=== PATIENT | male | born 1950 | race Caucasian/White ===

== ENCOUNTER 2017-03-13 10:56 | Day surgery (SDC) | payer MEDICARE, OTHER ==
[2017-03-13] VITALS (11 sets, daily range): BP systolic 129–154; BP diastolic 58–80; PULSE 52–60; RESP 10–19; O2SAT 93–100
[~2017-03-13] VITALS: Ht 167.6 cm; Wt 125.0 kg
[~2017-03-13 10:56] MED LIST: ASPI-973 PO; ATEN50TA PO; Ampicillin 2,000 mg/50 mL NS Minibag Plus IV SCH; CHOL200025 PO; Gentamicin 200 mg/100 mL D5W IV ONE; HYDR25TA4 PO; Lactated Ringer's 1,000 ML IV SCH; MAGN500P34 MC; RIVA20TA PO; SILD100T PO; UBID50TA3 PO; VIT1TABL83 PO; ZYL100 PO
[2017-03-13] MEDS ORDERED: Propofol 10,000 mCg/mL 20 mL Inj ONE (10:57)
[2017-03-13] MEDS ORDERED: Glycopyrrolate 0.2 MG/ML 1mL Inj ONE (10:57)
[2017-03-13] MEDS ORDERED: MetoCLOpramide 5 mg/mL 2 mL Inj ONE (10:57)
[2017-03-13] MEDS ORDERED: Neostigmine 1 mg/mL 10 mL Inj ONE (10:57)
[2017-03-13] MEDS ORDERED: Rocuronium 10 mg/mL 5 mL Inj ONE (10:57)
[2017-03-13] MEDS ORDERED: EPHEDrine/NS 5 mg/mL 5 mL Syringe ONE (10:57)
[2017-03-13] MEDS ORDERED: Ondansetron 2 mg/mL 2 mL Inj ONE (10:57)
[2017-03-13] MEDS ORDERED: fentaNYL-PF 50 mCg/mL 2 mL Inj ONE (10:57)
[2017-03-13] MEDS ORDERED: Lactated Ringer's 1,000 ML IV ONE ×2 (11:19→13:43)
[2017-03-13] MEDS ORDERED: Lactated Ringer's 500 ML IV PRN (12:23)
[2017-03-13] MEDS ORDERED: Lactated Ringer's 1,000 ML IV SCH (12:23)
[2017-03-13] MEDS ORDERED: HYDROmorphone 1 mg/mL Inj IVPUSH PRN (12:25)
[2017-03-13] MEDS ORDERED: Labetalol 5 mg/mL 20 mL Inj IV PRN (12:25)
[2017-03-13] MEDS ORDERED: Atropine 0.4 mg/mL Inj IVPUSH PRN (12:25)
[2017-03-13] MEDS ORDERED: EPHEDrine Sulfate 50 mg/mL Inj IVPUSH PRN (12:25)
[2017-03-13] MEDS ORDERED: fentaNYL-PF 50 mCg/mL 2 mL Inj IVPUSH PRN (12:25)
[2017-03-13] MEDS ORDERED: MetoCLOpramide 5 mg/mL 2 mL Inj IVPUSH PRN (12:25)
[2017-03-13] MEDS ORDERED: Phenylephrine 10,000 mCg/mL Inj IVPUSH PRN (12:25)
[2017-03-13] MEDS ORDERED: Ondansetron 2 mg/mL 2 mL Inj IVPUSH PRN (12:25)
--- NOTE | 2017-03-13 13:03 | PCM.HPANE ---
Patient Data Surgeon Admitting Provider: Attending Provider:Marcelo Tuttle MD Primary Care Physician:Claudio Brice MD Other Provider:Jimmy Morales Anesthesia Reason for Visit Left Kidney Stone Ht/WT & BMI Height (Feet): 5 Height (Inches): 6 Weight (Kilograms): 125 Body Mass Index 44.00 Allergies Coded Allergies: TYRON Inhibitors (Unverified Allergy, Severe, ANAPHYLAXIS, 09/06/15) Adhesives (Unverified Allergy, Severe, BLISTERS (STERI STRIPS), 09/06/15) azithromycin (Unverified Allergy, Unknown, UNKNOWN, 09/06/15) erythromycin base (Verified Allergy, Unknown, UNKNOWN, 09/06/15) shellfish derived (Verified Allergy, Unknown, UNKNOWN, 09/06/15) Past Anesthesia History Anesthesia History: Denies:: Abnormal Airway, Anesthesia Reactions, Difficult Intubation, Fam Anesthesia Reaction, Fam Malignant Hypertherm, Malignant Hyperthermia Diabetes History Hx Diabetes?: Yes Type of Diabetes: Type II Glycemic Control: Diet Controlled Current Bedside Blood Glucose: 133 MRSA MRSA: No Medications Blood Thinner: Aspirin Hypertension Medication: Yes Home Meds Incl Beta Whitley: Yes Date Beta Whitley Taken: Mar 13, 2017 Time Beta Whitley Taken: 0800 Reported Medications Rivaroxaban (Xarelto)20 Mg Igkpkc99 Mg PO PRN atrial fib 03/07/17 Cholecalciferol (Vitamin D3) (Vitamin D3)2,000 Unit Tablet2,000 Unit PO DAILY 03/07/17 Vit B Comp/C/FA/Iron/Vit E (Vitamin B Complex Tablet)1 Each Tablet1 Each PO DAILY 03/07/17 Sildenafil Citrate (Viagra)100 Mg Lkhkxs31-769 Mg PO UD PRN erectile dysfunction Ref 0 03/07/17 Magnesium Carbonate 500 Gm PowderUnknown Dose MC DAILY 03/07/17 Hydrochlorothiazide 25 Mg Trbiyp45 Mg PO DAILY 30 Days Ref 0 03/07/17 Ubidecarenone (Coq10)50 Mg Tab.gtir520 Mg PO BID 03/07/17 Atenolol 50 Mg Keytsr84 Mg PO BID #30 TABLET Ref 0 03/07/17 Aspirin 81 Mg Gejcyl04 Mg PO DAILY Ref 0 03/07/17 Allopurinol 100 Mg Oxjjya426 Mg PO DAILY Ref 0 03/07/17 Discontinued Reported Medications Cholecalciferol (Vitamin D3) (Vitamin D3)2,000 Unit Tablet2,000 Unit PO DAILY 4/20/16 Vit B Comp/C/FA/Iron/Vit E (Vitamin B Complex Tablet)1 Each Tablet1 Each PO DAILY 11/15/15 Sildenafil Citrate (Viagra)100 Mg Hbmvey289 Mg PO UD PRN erectile dysfunction Ref 0 11/15/15 Ubidecarenone (Co Q-10)100 Mg Aceqnge575 Mg PO DAILY 11/15/15 Atenolol 50 Mg Utdslj24 Mg PO DAILY #30 TABLET Ref 0 11/15/15 Hydrochlorothiazide 25 Mg Aarbqa35 Mg PO DAILY 30 Days Ref 0 11/15/15 Aspirin 81 Mg Ttqlas33 Mg PO DAILY Ref 0 11/15/15 Allopurinol 100 Mg Sqsnzk445 Mg PO DAILY Ref 0 11/15/15 History History of ENT Problems?: No HEENT History: Denies:: Abnormal Airway Cataracts Difficult Intubation Dysphagia Glaucoma Hearing Problem Sinus Problem TMJ Denture Type: None Teeth Condition: Within Normal Limits Hx of Heart Problems?: Yes Cardiovascular History: Positive for:: Atrial Fibrillation (cardioversion/ ablation for PAF 2013) Cardiac Surgery (S/P CARDIAC ABLATION 02/2014) Edema Hypertension Irregular Heartbeat (occ palpitations) Denies:: AICD Abdominal Aortic Aneurism Chest Pain Congestive Heart Failure Coronary Artery Disease Heart Murmur Pacemaker Peripheral Vascular Rheumatic Fever Thrombophlebitis Valvular Heart Disease Other Cardiac History: pt has Xarelto prescription for prn treatment of atrial fib- has not needed to use it. Is aware that he needs to be off all blood thinners for surgery- will notify dr Flowers office if he initiates prescription Hx of Respiratory Problem?: Yes Respiratory History: Positive for:: Use of C-PAP Machine (HENOK+) Denies:: Asthma COPD Chest Surgery Cough Dyspnea Emphysema Hemoptysis Oxygen Administration Pneumonia (HX OF) Pulmonary Embolism Tuberculosis Use of Inhalers / NEBS Hx Neurologic Problems?: No Neurological History: Denies:: Alzheimer's Disease CVA Dementia Dizziness Headaches Multiple Sclerosis Parkinson's Disease Peripheral Neuropathy Seizures TIA Hx of GI Problems?: Yes Gastrointestinal History: Denies:: Cirrhosis Diverticulitis Gall Bladder Disease Gastroesphageal Reflux Gastrointestinal Bleeding Heartburn Hepatitis Hiatal Hernia Liver Disease Rectal Bleeding Hx of Problems?: Yes Genitourinary History: Positive for:: Kidney Stones (left kidney stone current admission problem) Denies:: HX of Hemodialysis Urinary Tract Infection HX of Peritoneal Dialysis: No Male Hx: Positive for:: Prostate Problems (BPH) Denies:: Scrotal Mass Testicular Surgery Skin History: Positive for:: History Skin Disorders? (S/P EXC SHOULDER MELANOMA) Denies:: Pressure Ulcers Hx Musculoskeletal Problems?: Yes Musculoskeletal History: Positive for:: Musculoskeletal Trauma (S/P FINGER RPR ) Denies:: Back Injury Degenerative Joint Fibromyalgia Joint Replacement Myasthenia Gravis Osteoarthritis Rheumatoid Arthritis Systemic Lupus Hx of Psycho/Social Problems?: No Psycho Social History: Denies:: Anxiety Bipolar Disorder Hx Depression Suicide Attempt Hx Surgeries?: Yes (MARILUZ,FINGER RPR,TONSILS,EXC MELANOMA,LT ESWL,CARDIAC ABLATION) Hx Any Other Health Problems?: Yes Other History: Positive for:: Cancer (hx of melanoma shoulder) Hospitalization (CARDIAC) Denies:: Endocrine Disease Thyroid Disease History Blood Transfusions: Positive for:: Accept Blood Products? Denies:: Blood Transfuse Reaction Blood Transfusions Hx Diabetes: YesBedside Blood Glucose: 133 Hx Alcohol Use: YesHx Substance Use: No Smoking Status: Former Smoker Have You Smoked inLast 12 mo: No Stop/Bang P-Blood Pressure: treated: Yes B- Body Mass Index > 35 kg/m2: Yes A- Age over 50: Yes N- Neck Large Circumference: Yes Risk Assessment Category Category 1A: Patient has history of documented sleep apnea, and HAS NOT received any narcotic, sedative or anesthesia administration during this stay. Category 1B: Patient has history of documented sleep apnea, and HAS received any narcotic , sedative or anesthesia administration during this stay Category 2: Patient has SUSPECTED Obstructive Sleep Apnea, and HAS received any narcotic , sedative or anesthesia administration during this stay. Category 3: Patient has SUSPECTED Obstructive Sleep Apnea and HAS NOT received narcotic, sedative or anesthesia administration during this stay. Category 4: Outpatient in Procedural Areas with known sleep apnea or who screen positive for High Risk via the STOP/BANG questionnaire. Exam Exam Vital Signs Vital Signs Date Time Temp Pulse Resp B/P Pulse Ox O2 Delivery O2 Flow Rate FiO2 03/13/17 11:14 36.7 52 16 154/74 94 Room Air General Appearance: Alert, Oriented X3, Cooperative, No Acute Distress HEENT/AIRWAY: MP 2, Neck Movement (FROM), Mouth Opening (3 FBMO) Lungs: Clear to Auscultation, Normal Air Movement Heart: Exam Unremarkable, Regular Rate/Rhythm, No Murmurs/Rubs/Gallops Meds/Labs/Diagnostics Admission Meds Current Medications Lactated Ringer's (Lr) 1,000 ml @ ud STK-MED ONCE IV Last administered on 03/13t 11:19; Start 03/13/17 at 11:19; Stop 03/13/17 at 11:20; Status DC Bedside Blood Glucose: 133 Plan Impression Patient chart reviewed, patient interviewed and anesthestic plan with risks, benefits, and alternatives discussed, and informed consent obtained. NPO per Anesth. Guidelines: Yes ASA Physical Status: ASA3 Severe Disease (BMI 44.5) Anesthetic Plan: GA Bene/Risks/Altern/Consents: Yes HP Complete Prior to Induction: Yes Shemar Anguiano MD Mar 13, 2017 11:56
[2017-03-13] MEDS ORDERED: Belladonna Alk-Opium 60 mg Rectal Suppository RECTAL ONE (13:57)
--- NOTE | 2017-03-13 14:34 | DRSVH ---
PROCEDURE: X-RAY RETROGRADE UROGRAPHY INDICATIONS: C-ARM ASSISTED LEFT KIDNEY STONE REMOVAL TECHNIQUE: 6 intra-operative images acquired by the Urology service. COMPARISON: None. FINDINGS: Multiple images demonstrate left ureterography, as well as left ureteral stent placement. Mild left hydronephrosis is present. IMPRESSION: Retrograde urography as described above. Dictated by: Prem Vidal M.D. on 03/13/2017 at 14:31 Approved by: Prem Vidal M.D. on 03/13/2017 at 14:33
--- NOTE | 2017-03-13 15:06 | PCM.SURGPO ---
Immediate Operative Note Date of Surgery: Mar 13, 2017 Pre Operative Diagnosis L renal calculi, microhematuria Post Operative Diagnosis L renal calculi, microhematuria, bladder tumor Procedure Cystoscopy, L ureteroscopy, Holmium laser lithotripsy, basket extraction of calculi and calculi fragments, L ureteral stent placement, and transurethral resection of bladder tumor (1-2cm) Surgeon and Chemical Preparer Surgeon: Marcelo Tuttle MD Assistants: None Findings Cystoscopy revealed trilobar prostatic hypertrophy, mildly trabeculated bladder , approx. 1cm papillary bladder tumor on R trigone (approx. 1cm posterior to R ureteral orifice), and B/L ureteral orifices in normal position. L semi-rigid ureteroscopy revealed no calculi in L distal or L mid ureter. A 12/14F x 45cm ureteral access sheath was placed in L ureter. L flexible ureteroscopy revealed no calculi in L proximal ureter and many (>10) L renal calculi (almost all calculi in L lower pole)(largest calculus approx. 3-4mm). Holmium laser lithotripsy and basket extraction of calculi and calculi fragments were performed. L ureteral stent was placed. Bladder tumor was resected using bipolar loop electrocautery. B/L ureteral orifices were seen to be intact and well-preserved at the end of the case. Complications There were no periprocedural complications identified. Surgical Specimen Removed: Yes Specimen sent to Pathology: Yes Surgical Specimen description: R trigone bladder tumor sent to pathology, L renal calculi and L renal calculi fragments sent to lab for stone analysis Anesthetic Administered: GA Grafts, Implants: Other (28cm x 5F L ureteral JJ stent (no string), 18F Saucedo catheter to straight drainage) Output, Estimated Blood Loss: 5 Blood Admin during surgery: No Additional information Patient to be discharged home with Saucedo, to return to see me in the office in 5 -8 days for post-op visit and trial of void. Will plan for cystoscopy and ureteral stent removal in 1.5-2 weeks (with KUB prior to appt.). Marcelo Tuttle MD Mar 13, 2017 15:06
[2017-03-13] MEDS ORDERED: HYDROcodone-APAP 10-325 mg PO ONE (15:45)
--- NOTE | 2017-03-13 15:50 | PCM.ANEP1 ---
Post Anesthesia PACU Phase 1 Assessment Vital Signs Vital Signs Date Time Temp Pulse Resp B/P Pulse Ox O2 Delivery O2 Flow Rate FiO2 03/13/17 15:15 36.6 57 12 134/58 94 Room Air 03/13/17 15:10 53 10 139/63 93 Room Air 03/13/17 15:05 36.9 56 16 135/60 93 Room Air 03/13/17 15:00 58 18 131/80 93 Room Air 03/13/17 14:55 58 16 129/62 94 Room Air 03/13/17 14:50 58 18 132/59 94 Room Air 03/13/17 14:43 36.5 60 19 152/74 100 Simple Mask 8 03/13/17 11:14 36.7 52 16 154/74 94 Room Air Anesthetic Administered: GA Level of Alertness: Awake, talking GONZALEZ's with Equal Strength: Yes Pain: No Nausea or Vomiting: No CV Function & Hydration Stable: Yes Airway Device: n/a Oxygen Delivery: Room Air Lungs: Clear to Auscultation, Normal Air Movement Dermatome Level: Full Sensation PACU Phase 2 Assessment Complications: No Follow up Care: N/A Patient Instructions Provided: N/A Shemar Anguiano MD Mar 13, 2017 15:50
[2017-03-13] MEDS ORDERED: Phenazopyridine 97.5 mg Tablet ONE (16:50)
--- NOTE | 2017-03-13 16:54 | PCM.DISURG ---
Surgical Discharge Instruction Date of Service Mar 13, 2017 Dates of Hospitalization Date of Hospital Admission Mar 13, 2017 Providers Admitting Physician: Marcelo Tuttle MD Primary Care Physician: Claudio Brice MD Attending Physician: Marcelo Tuttle MD Discharge Diagnosis Discharge Diagnosis L renal calculi, microhematuria, bladder tumor Post Operative diagnosis L renal calculi, microhematuria, bladder tumor Diet Discharge Diet: No restrictions, Other (Drink at least 10-12 8oz. glasses (3 liters) of fluids per day) Activity Discharge Activity-General: No driving while taking narcotic, Other (No strenuous exercise/activity or moderate or heavy lifting (> 10 lbs.) for 1-2 weeks and for as long as there is blood in the urine) Dressing and Incisional Care Hygiene: May shower Follow Up Plan Follow-up Provider (F9): Marcelo Tuttle MD Follow-up appointment: Days (5-8 days for post-op visit and trial of void) Call your provider for: Fever, Chills, Vomiting, Other (Pain uncontrolled by pain medications, non-draining Saucedo catheter) Marcelo Tuttle MD Mar 13, 2017 16:54
[2017-03-13] MEDS ORDERED: HYDROcodone-APAP 5-325 mg Tablet PO PRN (17:05)
--- NOTE | 2017-03-14 19:49 | OP ---
[address] [address] OPERATIVE REPORT PATIENT: EVELIA JUDGE : 1950 MR#: [id number] ADMIT: 03/13/2017 JOB ID: [id number] DATE OF SURGERY: 03/13/2017 PREOPERATIVE DIAGNOSIS(ES): Left renal calculi, microhematuria. POSTOPERATIVE DIAGNOSIS(ES): Left renal calculi, microhematuria, bladder tumor. PROCEDURE: Cystoscopy, left ureteroscopy, holmium laser lithotripsy, basket extraction of calculi and calculi fragments, left ureteral stent placement, and transurethral resection of bladder tumor (1-2 cm). SURGEON: Marcelo Tuttle MD EPOXY SPECIALIST: None. ANESTHESIA: General. ESTIMATED BLOOD LOSS: 5 mL. SPECIMENS: Right trigone bladder tumor, left renal calculi, and left renal calculi fragments sent to the lab for stone analysis. DRAINS: A 28 cm x 5-Algerian left ureteral double-J stent, 18-Algerian Saucedo catheter to straight drainage. COMPLICATIONS: None. CONDITION: Stable. FINDINGS: Cystoscopy revealed trilobar prostatic hypertrophy, mildly trabeculated bladder, and an approximately 1 cm papillary bladder tumor on the right trigone (approximately 1 cm posterior to the right ureteral orifice), and bilateral ureteral orifices in normal position. Left semi-rigid ureteroscopy revealed no calculi in the left distal or left mid ureter. A 12/14-Algerian x 45 cm ureteral access sheath was placed in the left ureter. Left flexible ureteroscopy revealed no calculi in the left proximal ureter and many (greater than 10) left renal calculi (almost all calculi in the left lower pole) (largest calculus approximately 3-4 mm). Holmium laser lithotripsy and basket extraction of calculi and calculi fragments were performed. Left ureteral stent was placed. The bladder tumor was resected using bipolar loop electrocautery. Bilateral ureteral orifices seen to be intact and well preserved at the end of the case. INDICATIONS: The patient is a 66-year-old male with left renal calculi and microhematuria. The patient now presents for cystoscopy, left ureteroscopy, holmium laser lithotripsy, possible basket extraction of calculi fragments, and left renal stent placement. PROCEDURE: The patient was brought the patient was brought to the operating room and placed supine on the operating room table. The patient was given ampicillin and gentamicin IV antibiotics. Sequential compression device boots were placed. General anesthesia was administered. The patient was brought down into dorsal lithotomy position. The patient was prepped and draped in standard surgical fashion. A 22-Algerian rigid cystoscope was placed in the distal urethra without difficulty. Cystoscopy revealed normal distal urethra, trilobar prostatic hypertrophy with enlarged intravesical median prostatic lobe, mildly trabeculated bladder, and an approximately 1 cm papillary bladder tumor on the right trigone (approximately 1 cm posterior to the right ureteral orifice), and bilateral ureteral orifices in normal position. An angled tip UltraTrack guidewire was placed into the left ureteral orifice and passed up the left ureter, into the left renal collecting system. The cystoscope was removed from the patient. The guidewire was secured to the drape with a Mackenzie clamp as a safety wire. A semi-rigid ureteroscope was advanced through the urethra and bladder and into the left ureteral orifice with the assistance of a PTFE guidewire. Left semi-rigid ureteroscopy revealed no calculi in the left distal or left mid ureter. The PTFE guidewire was advanced up the left ureter, into the left renal collecting system. The semi-rigid ureteroscope was removed from the patient. A 12/14-Algerian x 45 cm ureteral access sheath was passed over the PTFE guidewire, through the urethra and bladder, and up the left ureter into the left mid ureter. The inner portion of the sheath and PTFE guidewire were removed from the patient. A flexible ureteroscope was advanced through the ureteral access sheath into the left mid ureter. Left flexible ureteroscopy revealed no calculi in the left proximal ureter and many (greater than 10) left renal calculi, with almost all calculi in the left lower pole, and with the largest calculus approximately 3-4 mm. Holmium laser lithotripsy was performed of the calculi using a 273 micron holmium laser fiber. Basket extraction of calculi and calculi fragments was performed using a 2.2-Algerian NCircle Nitinol basket and also a 2.2-Algerian NGage nitinol basket, and left renal calculi and left renal calculi fragments were sent to the laboratory for stone analysis. The left renal pelvis and all calices were visualized. No significant 2 mm or larger calculi or calculi fragments were seen. Of note, pressure irrigation was performed of the left renal collecting system. A small amount of contrast was instilled into the left renal collecting system to illuminate the left renal collecting system to aid in stent placement. The flexible ureteroscope and ureteral access sheath were backed down the left ureter and the entire left ureter was visualized. No significant 2 mm or larger calculi or calculi fragments were seen. The flexible ureteroscope and ureteral access sheath were removed from the patient. The rigid cystoscope was passed over the safety guidewire, through the urethra, and into the bladder. A 28 cm x 5-Algerian ureteral double-J stent, with the stent string removed prior to stent placement, was passed over the guidewire, through the cystoscope, passed up the left ureter, and placed so that the proximal pigtail was located in the left renal pelvis and the distal pigtail was located in the bladder. The guidewire was removed. Correct positioning of the stent was confirmed both fluoroscopically and under direct visualization using the cystoscope. Good efflux of contrast could be seen draining from the distal end of the stent into the bladder, further confirming correct stent positioning. The rigid cystoscope was removed from the patient. A 26-Algerian continuous flow resectoscope was placed through the urethra and into the bladder without difficulty. The right trigone bladder tumor was resected in its entirety using Thunderbeat bipolar loop electrocautery and sent to pathology for permanent specimen. The base the base of the bladder tumor resected area, including normal surrounding bladder mucosa, was fulgurated using bipolar loop electrocautery. Excellent hemostasis was achieved. No evidence for bladder perforation was seen. Bilateral ureteral orifices were seen to be intact and well-preserved at the end of the case. The continuous-flow resectoscope was removed the patient. An 18-Algerian Saucedo catheter was placed through the urethra and into the bladder without difficulty. The Saucedo catheter balloon was inflated with 10 mL of sterile water. The Saucedo catheter was placed to straight drainage. The right trigone bladder tumor was sent pathology for permanent specimen. The left renal calculi and left renal calculi fragments were sent to the laboratory for stone analysis. The skin was cleaned and dried. The patient was placed in supine position. The patient was awakened from general anesthesia and transferred to the recovery room in stable in stable condition. The patient tolerated the procedure well. The plan is for the patient be discharged home with a Saucedo catheter and to return to see co in the office in 5-8 days for a postop visit and a trial of void. Will plan for cystoscopy and ureteral stent removal in one and half to two weeks, with a KUB x-ray prior to the appointment.
[2017-03-18 16:11] LABS: Stone Color Brown (.)
--- NOTE | 2017-03-19 13:09 | PATH ---
SURGICAL PATHOLOGY Attending Physician:Marcelo Tuttle MD CASE STATUS: Signed Out PATIENT NAME: EVELIA JUDGE III PID: [id number] : 1950 DATE COLLECTED:03/13/2017 00:00 SPECIMEN: Bladder, Biopsy CLINICAL HISTORY: LEFT KIDNEY STONE, BLADDER TUMOR 1). RIGHT TRIGONE BLADDER TUMOR FINAL DIAGNOSIS: 1.RIGHT TRIGONE BLADDER TUMOR, TRANSURETHRAL RESECTION OF BLADDER TUMOR: - FRAGMENT OF BLADDER WALL WITH MILD FOCAL CHRONIC INFLAMMATION INVOLVING THE UROTHELIUM WITH MINIMAL REACTIVE ATYPIA. SEE COMMENT. - NO EVIDENCE OF HIGH GRADE DYSPLASIA AND MALIGNANCY. ICD10 R31 NOTE: The histologic sections demonstrate an undulating urothelium with mild focal lymphocytic inflammation and minimal cytologic atypia likely due to inflammation. No definite papillary architecture is identified. No high grade dysplasia or malignancy is identified. Additional deeper levels are examined. GROSS DESCRIPTION: The specimen is received in formalin, labeled with the patient's name, sublabeled as right trigone Bl tumor and consists of a fragment of leslie-llanes rubbery glistening tissue (<0.1 g, 0.3 x 0.3 x 0.3 cm). Section code: (A) intact tissue. Specimen entirely submitted. 03/14/17 JM MICRO DESCRIPTION: See diagnosis. ICD-9 CODES: CPT CODES: 1: 36173 Electronically Signed Out Nicholas Bello MD [facility] Pathology [facility] [address], [place] [address] Technical component performed at [facility], [facility] [address], [place], [address]
== END 2017-03-13 23:59 | disposition home or self-care (01) ==
LOC: SAS 10:56
PROVIDERS: ATTEND Urology
DX: N32.9 Bladder disorder, unspecified (principal); N20.0 Calculus of kidney; R31.9 Hematuria, unspecified; I48.91 Unspecified atrial fibrillation; I10 Essential (primary) hypertension; E11.9 Type 2 diabetes mellitus without complications; F32.9 Major depressive disorder, single episode, unspecified; K21.9 Gastro-esophageal reflux disease without esophagitis; G47.30 Sleep apnea, unspecified; Z85.46 Personal history of malignant neoplasm of prostate; Z79.01 Long term (current) use of anticoagulants
CPT/HCPCS: 52234; 52356; 74420; 82360; C2617; J0290; J1580; J2405; J2704; J2710; J2765; J3010; J7120; Q9967